=== PATIENT | female | born 1935 | race Caucasian/White ===

== ENCOUNTER 2017-04-07 14:14 | Inpatient (IN) ==
[2017-04-07] MEDS ORDERED: ACETAMINOPHEN 325 MG TABLET PO PRN (19:34)
[2017-04-07] MEDS ORDERED: ALUMINUM/MAGNES/SIMETH MAX STR 30 ML UDCUP PO PRN (19:34)
[2017-04-07] MEDS ORDERED: MECLIZINE 25 MG TABLET PO PRN (19:40)
[2017-04-07] MEDS: DEXTROSE 5% NACL 0.45% 1,000 ML IV SCH (20:44)
[2017-04-07] MEDS: PIPERACILLIN/TAZOBACTAM 3,375 MG in SODIUM CHLORIDE 0.9% 100 ML IV SCH (20:46)
[2017-04-07] MEDS: ZALEPLON 5 MG CAPSULE PO SCH (20:50)
[2017-04-07] MEDS: rOPINIRole 1 MG TABLET PO SCH (20:50)
[2017-04-07] MEDS: traZODone 50 MG TABLET PO SCH (20:50)
[2017-04-07] MEDS: DOCUSATE SODIUM 100 MG CAPSULE PO SCH (20:51)
[2017-04-07] MEDS: ONDANSETRON 4 MG TABLET PO PRN (20:51)
[2017-04-07] MEDS: PREGABALIN 50 MG CAPSULE PO SCH (20:51)
[2017-04-07] MEDS ORDERED: AMITRIPTYLINE 75 MG TABLET PO SCH (21:00)
[2017-04-07] MEDS ORDERED: PARoxetine 10 MG TABLET PO SCH (21:00)
[2017-04-08] MEDS: PIPERACILLIN/TAZOBACTAM 3,375 MG in SODIUM CHLORIDE 0.9% 100 ML IV SCH ×3 (04:08→20:42)
[2017-04-08] MEDS ORDERED: LEVOTHYROXINE 150 MCG TABLET PO SCH (06:30)
[2017-04-08 06:50] LABS: Basophils % 0.4 % (0.0-0.8); Eosinophils # 0.1 10*3/uL (0.0-0.87); Eosinophils % 1.1 % (0.00-10.9); Hematocrit 33.8 VOL% (35.7-47.0); Hemoglobin 11.2 GM/DL (12.0-16.0); Immature Granulocytes % 0.3 %; Immature Granulocytes Absolute 0.02 #; Lymphocytes # 1.8 10*3/uL (1.4-4.0); Mean Corpuscular HGB Conc 33.1 GM/DL (32-36); Mean Corpuscular Hemoglobin 31 PG (27-34); Mean Corpuscular Volume 93.1 FL (87-102); Monocytes # 0.6 10*3/uL (0.11-0.8); Neutrophils # 4.6 10*3/uL (1.4-7.4); Neutrophils % 64.2 % (38.7-73.9); Platelet Count 193 T/CUMM (130-400); Red Blood Count 3.63 MC/CUMM (3.8-5.5); Red Cell Distribution Width 11.9 % (9.3-17.3); White Blood Count 7.1 T/CUMM (4-12)
[2017-04-08] MEDS ORDERED: LINACLOTIDE 145 MCG CAPSULE PO SCH (07:30)
[2017-04-08 07:34] LABS: Apearance,Urine CLEAR (Clear); Bacteria,Urine Occasional /HPF (Few); Bilirubin,Urine Negative (Negative); Blood, Urine Negative (Negative); Glucose,Urine (UA) Negative (Negative); Ketones,Urine Negative (Negative); Mucus,Urine Occasional /LPF (Occasional); Nitrite,Urine Negative (Negative); Protein,Urine Negative; RBC,Urine 2 /HPF (0-4); Squamous Epithelial Cell,Urine Occasional /HPF (0-10); Urine Color Yellow (Yellow); Urine Specific Gravity 1.015 (1.001-1.035); Urine Urobilinogen < 2.0 EU/DL (0.2-1.0); WBC,Urine 2 /HPF (0-6)
[2017-04-08 07:56] LABS: Bilirubin,Total 0.7 MG/DL (0.2-1.0); Calcium 8.6 MG/DL (8.5-10.1); Osmolality,Calculated 277.5 MOS/KG (273-304); Total Protein 6.2 G/DL (6.4-8.3)
[2017-04-08] MEDS ORDERED: ESCITALOPRAM 10 MG TABLET PO SCH (09:00)
[2017-04-08] MEDS: LACTULOSE 20 GM/30 ML UDCUP PO SCH (10:02)
[2017-04-08] MEDS: DOCUSATE SODIUM 100 MG CAPSULE PO SCH ×2 (10:02→20:40)
[2017-04-08] MEDS: ESTRADIOL 1 MG TABLET PO SCH (10:02)
[2017-04-08] MEDS: ASPIRIN EC 81 MG TABLET PO SCH (10:02)
[2017-04-08] MEDS: hydroCHLOROthiazide 25 MG TABLET PO SCH (10:03)
[2017-04-08] MEDS: GABAPENTIN 100 MG CAPSULE PO SCH (10:03)
[2017-04-08] MEDS: PANTOPRAZOLE 40 MG TABLET PO SCH (10:03)
[2017-04-08] MEDS: predniSONE 20 MG TABLET PO SCH (10:03)
[2017-04-08] MEDS: METOPROLOL SUCCINATE XL 25 MG TABLET PO SCH (10:03)
[2017-04-08] MEDS: HYDROmorphone 2 MG/1 ML VIAL IV PRN ×2 (13:19→17:17)
[2017-04-08] MEDS: SKIN HEALING OINT (AQUAPHOR) 50 GM TUBE TOP SCH (17:17)
[2017-04-08] MEDS: BACITRACIN OINT 0.9 GM PACK TOP SCH (17:17)
[2017-04-08] MEDS: DEXTROSE 5% NACL 0.45% 1,000 ML IV SCH (17:18)
[2017-04-08] MEDS: rOPINIRole 1 MG TABLET PO SCH (20:40)
[2017-04-08] MEDS: ZALEPLON 5 MG CAPSULE PO SCH (20:40)
[2017-04-08] MEDS: PREGABALIN 50 MG CAPSULE PO SCH (20:41)
[2017-04-08] MEDS: traZODone 50 MG TABLET PO SCH (20:41)
[2017-04-08] MEDS: oxyCODONE/ACETAMINOPHEN 5-325 MG TABLET PO PRN (20:41)
[2017-04-09] MEDS: PIPERACILLIN/TAZOBACTAM 3,375 MG in SODIUM CHLORIDE 0.9% 100 ML IV SCH ×3 (05:06→20:25)
[2017-04-09] MEDS: DEXTROSE 5% NACL 0.45% 1,000 ML IV SCH ×2 (06:54→12:28)
[2017-04-09] MEDS: ESTRADIOL 1 MG TABLET PO SCH (10:08)
[2017-04-09] MEDS: ASPIRIN EC 81 MG TABLET PO SCH (10:08)
[2017-04-09] MEDS: metroNIDAZOLE INJ 500 MG in PREMIX 1 EACH IV SCH ×2 (10:08→17:35)
[2017-04-09] MEDS: hydroCHLOROthiazide 25 MG TABLET PO SCH (10:09)
[2017-04-09] MEDS: METOPROLOL SUCCINATE XL 25 MG TABLET PO SCH (10:09)
[2017-04-09] MEDS: PANTOPRAZOLE 40 MG TABLET PO SCH (10:09)
[2017-04-09] MEDS: GABAPENTIN 100 MG CAPSULE PO SCH (10:09)
[2017-04-09] MEDS: SKIN HEALING OINT (AQUAPHOR) 50 GM TUBE TOP SCH (10:10)
[2017-04-09] MEDS: LACTULOSE 20 GM/30 ML UDCUP PO SCH (10:10)
[2017-04-09] MEDS: oxyCODONE/ACETAMINOPHEN 5-325 MG TABLET PO PRN ×2 (10:10→20:23)
[2017-04-09] MEDS: DOCUSATE SODIUM 100 MG CAPSULE PO SCH ×2 (10:10→20:23)
[2017-04-09] MEDS: BACITRACIN OINT 0.9 GM PACK TOP SCH (10:10)
[2017-04-09] MEDS: predniSONE 20 MG TABLET PO SCH (10:10)
[2017-04-09] MEDS: ONDANSETRON 4 MG TABLET PO PRN (10:11)
[2017-04-09] MEDS: HYDROmorphone 2 MG/1 ML VIAL IV PRN (14:13)
[2017-04-09] MEDS ORDERED: BISACODYL 5 MG TABLET PO ONE (15:06)
[2017-04-09] MEDS: ZALEPLON 5 MG CAPSULE PO SCH (20:23)
[2017-04-09] MEDS: rOPINIRole 1 MG TABLET PO SCH (20:23)
[2017-04-09] MEDS: PREGABALIN 50 MG CAPSULE PO SCH (20:24)
[2017-04-09] MEDS: traZODone 50 MG TABLET PO SCH (20:24)
[2017-04-10] MEDS: metroNIDAZOLE INJ 500 MG in PREMIX 1 EACH IV SCH ×2 (01:10→07:18)
[2017-04-10] MEDS: PIPERACILLIN/TAZOBACTAM 3,375 MG in SODIUM CHLORIDE 0.9% 100 ML IV SCH ×3 (04:00→20:31)
[2017-04-10] MEDS: DEXTROSE 5% NACL 0.45% 1,000 ML IV SCH ×2 (04:00→09:46)
[2017-04-10 06:15] LABS: Basophils # 0.1 10*3/uL (0.0-0.2); Basophils % 0.8 % (0.0-0.8); Eosinophils # 0.1 10*3/uL (0.0-0.87); Eosinophils % 1.1 % (0.00-10.9); Hematocrit 31.4 VOL% (35.7-47.0); Hemoglobin 10.7 GM/DL (12.0-16.0); Immature Granulocytes % 0.3 %; Immature Granulocytes Absolute 0.02 #; Lymphocytes % 30.7 % (21.3-54.2); Mean Corpuscular HGB Conc 34.1 GM/DL (32-36); Mean Corpuscular Hemoglobin 31 PG (27-34); Mean Platelet Volume 10.5 FL (9.6-12.0); Monocytes # 0.7 10*3/uL (0.11-0.8); Monocytes % 10.9 % (1.7-12.7); Neutrophils # 3.7 10*3/uL (1.4-7.4); Neutrophils % 56.2 % (38.7-73.9); Platelet Count 181 T/CUMM (130-400); Red Blood Count 3.45 MC/CUMM (3.8-5.5); Red Cell Distribution Width 11.9 % (9.3-17.3); White Blood Count 6.5 T/CUMM (4-12)
[2017-04-10 06:37] LABS: Calcium 8.8 MG/DL (8.5-10.1); Potassium 3.3 MMOL/L (3.5-5.1)
[2017-04-10] MEDS: oxyCODONE/ACETAMINOPHEN 5-325 MG TABLET PO PRN ×2 (09:42→16:06)
[2017-04-10] MEDS: ESTRADIOL 1 MG TABLET PO SCH (09:43)
[2017-04-10] MEDS: DOCUSATE SODIUM 100 MG CAPSULE PO SCH ×2 (09:43→20:25)
[2017-04-10] MEDS: hydroCHLOROthiazide 25 MG TABLET PO SCH (09:43)
[2017-04-10] MEDS: METOPROLOL SUCCINATE XL 25 MG TABLET PO SCH (09:43)
[2017-04-10] MEDS: predniSONE 10 MG TABLET PO SCH (09:43)
[2017-04-10] MEDS: GABAPENTIN 100 MG CAPSULE PO SCH (09:43)
[2017-04-10] MEDS: ASPIRIN EC 81 MG TABLET PO SCH (09:43)
[2017-04-10] MEDS: PANTOPRAZOLE 40 MG TABLET PO SCH (09:43)
[2017-04-10] MEDS: SKIN HEALING OINT (AQUAPHOR) 50 GM TUBE TOP SCH (09:44)
[2017-04-10] MEDS: POTASSIUM CHLORIDE 8 MEQ CAPSULE PO SCH ×2 (11:43→20:25)
[2017-04-10] MEDS: HYDROmorphone 2 MG/1 ML VIAL IV PRN ×2 (11:49→18:54)
[2017-04-10] MEDS: ONDANSETRON 4 MG/2 ML VIAL IV PRN ×2 (11:54→18:54)
[2017-04-10] MEDS: BACITRACIN OINT 0.9 GM PACK TOP SCH (11:55)
[2017-04-10] MEDS: rOPINIRole 1 MG TABLET PO SCH (20:25)
[2017-04-10] MEDS: traZODone 50 MG TABLET PO SCH (20:25)
[2017-04-10] MEDS: PREGABALIN 50 MG CAPSULE PO SCH (20:25)
[2017-04-10] MEDS: ZALEPLON 5 MG CAPSULE PO SCH (20:25)
[2017-04-11] MEDS: oxyCODONE/ACETAMINOPHEN 5-325 MG TABLET PO PRN ×4 (01:01→21:20)
[2017-04-11] MEDS: PIPERACILLIN/TAZOBACTAM 3,375 MG in SODIUM CHLORIDE 0.9% 100 ML IV SCH ×3 (04:13→21:17)
[2017-04-11 05:59] LABS: Basophils % 0.7 % (0.0-0.8); Eosinophils # 0.1 10*3/uL (0.0-0.87); Eosinophils % 1.4 % (0.00-10.9); Hematocrit 32.3 VOL% (35.7-47.0); Hemoglobin 11.2 GM/DL (12.0-16.0); Immature Granulocytes % 0.5 %; Immature Granulocytes Absolute 0.03 #; Lymphocytes # 2.3 10*3/uL (1.4-4.0); Lymphocytes % 39.9 % (21.3-54.2); Mean Corpuscular HGB Conc 34.7 GM/DL (32-36); Mean Corpuscular Hemoglobin 31 PG (27-34); Mean Corpuscular Volume 88.7 FL (87-102); Mean Platelet Volume 10.4 FL (9.6-12.0); Monocytes # 0.6 10*3/uL (0.11-0.8); Monocytes % 9.7 % (1.7-12.7); Neutrophils # 2.7 10*3/uL (1.4-7.4); Neutrophils % 47.8 % (38.7-73.9); Platelet Count 196 T/CUMM (130-400); Red Blood Count 3.64 MC/CUMM (3.8-5.5); White Blood Count 5.7 T/CUMM (4-12)
[2017-04-11 06:25] LABS: Calcium 8.9 MG/DL (8.5-10.1); Osmolality,Calculated 281.1 MOS/KG (273-304); Potassium 3.6 MMOL/L (3.5-5.1)
[2017-04-11] MEDS: DEXTROSE 5% NACL 0.45% 1,000 ML IV SCH ×2 (07:04→21:16)
[2017-04-11] MEDS: BACITRACIN OINT 0.9 GM PACK TOP SCH (08:52)
[2017-04-11] MEDS: SKIN HEALING OINT (AQUAPHOR) 50 GM TUBE TOP SCH (08:52)
[2017-04-11] MEDS: POTASSIUM CHLORIDE 8 MEQ CAPSULE PO SCH ×2 (08:52→21:19)
[2017-04-11] MEDS: hydroCHLOROthiazide 25 MG TABLET PO SCH (08:52)
[2017-04-11] MEDS: GABAPENTIN 100 MG CAPSULE PO SCH (08:53)
[2017-04-11] MEDS: PANTOPRAZOLE 40 MG TABLET PO SCH (08:53)
[2017-04-11] MEDS: DOCUSATE SODIUM 100 MG CAPSULE PO SCH ×2 (08:53→21:20)
[2017-04-11] MEDS: ASPIRIN EC 81 MG TABLET PO SCH (08:53)
[2017-04-11] MEDS: ESTRADIOL 1 MG TABLET PO SCH (08:53)
[2017-04-11] MEDS: predniSONE 10 MG TABLET PO SCH (08:53)
[2017-04-11] MEDS: METOPROLOL SUCCINATE XL 25 MG TABLET PO SCH (08:53)
[2017-04-11] MEDS: ZALEPLON 5 MG CAPSULE PO SCH (21:19)
[2017-04-11] MEDS: traZODone 50 MG TABLET PO SCH (21:19)
[2017-04-11] MEDS: rOPINIRole 1 MG TABLET PO SCH (21:19)
[2017-04-11] MEDS: PREGABALIN 50 MG CAPSULE PO SCH (21:20)
[2017-04-11] MEDS: ONDANSETRON 4 MG TABLET PO PRN (21:20)
[2017-04-12] MEDS: DEXTROSE 5% NACL 0.45% 1,000 ML IV SCH ×2 (00:30→21:44)
[2017-04-12] MEDS: HYDROmorphone 2 MG/1 ML VIAL IV PRN ×2 (00:47→11:43)
[2017-04-12] MEDS: PIPERACILLIN/TAZOBACTAM 3,375 MG in SODIUM CHLORIDE 0.9% 100 ML IV SCH ×3 (04:44→21:44)
[2017-04-12] MEDS: ESTRADIOL 1 MG TABLET PO SCH (09:00)
[2017-04-12] MEDS: POTASSIUM CHLORIDE 8 MEQ CAPSULE PO SCH ×2 (09:00→21:44)
[2017-04-12] MEDS: METOPROLOL SUCCINATE XL 25 MG TABLET PO SCH (09:00)
[2017-04-12] MEDS: PANTOPRAZOLE 40 MG TABLET PO SCH (09:00)
[2017-04-12] MEDS: predniSONE 10 MG TABLET PO SCH (09:00)
[2017-04-12] MEDS: ASPIRIN EC 81 MG TABLET PO SCH (09:00)
[2017-04-12] MEDS: hydroCHLOROthiazide 25 MG TABLET PO SCH (09:00)
[2017-04-12] MEDS: GABAPENTIN 100 MG CAPSULE PO SCH (09:00)
[2017-04-12] MEDS: DOCUSATE SODIUM 100 MG CAPSULE PO SCH ×2 (09:00→21:45)
[2017-04-12] MEDS: ONDANSETRON 4 MG/2 ML VIAL IV PRN ×2 (11:44→21:45)
[2017-04-12] MEDS ORDERED: LIDOCAINE 2% 5 ML VIAL ONE (13:05)
[2017-04-12] MEDS ORDERED: PROPOFOL 200 MG/20 ML VIAL IV ONE (13:05)
[2017-04-12] MEDS ORDERED: ONDANSETRON 4 MG/2 ML VIAL ONE (13:05)
[2017-04-12] MEDS: SKIN HEALING OINT (AQUAPHOR) 50 GM TUBE TOP SCH (17:45)
[2017-04-12] MEDS: BACITRACIN OINT 0.9 GM PACK TOP SCH (17:45)
[2017-04-12] MEDS: rOPINIRole 1 MG TABLET PO SCH (21:44)
[2017-04-12] MEDS: PREGABALIN 50 MG CAPSULE PO SCH (21:44)
[2017-04-12] MEDS: ZALEPLON 5 MG CAPSULE PO SCH (21:45)
[2017-04-12] MEDS: traZODone 50 MG TABLET PO SCH (21:45)
[2017-04-13] MEDS: DEXTROSE 5% NACL 0.45% 1,000 ML IV SCH ×3 (02:05→18:33)
[2017-04-13] MEDS: PIPERACILLIN/TAZOBACTAM 3,375 MG in SODIUM CHLORIDE 0.9% 100 ML IV SCH ×3 (04:11→20:47)
[2017-04-13] MEDS ORDERED: ceFAZolin 1,000 MG in SYRINGE 1 EACH IV ONE (08:09)
[2017-04-13] MEDS: hydroCHLOROthiazide 25 MG TABLET PO SCH (08:12)
[2017-04-13] MEDS: predniSONE 10 MG TABLET PO SCH (08:12)
[2017-04-13] MEDS: POTASSIUM CHLORIDE 8 MEQ CAPSULE PO SCH ×2 (08:12→20:47)
[2017-04-13] MEDS: PANTOPRAZOLE 40 MG TABLET PO SCH (08:13)
[2017-04-13] MEDS: ESTRADIOL 1 MG TABLET PO SCH (08:13)
[2017-04-13] MEDS: ASPIRIN EC 81 MG TABLET PO SCH ×2 (08:13→08:15)
[2017-04-13] MEDS: METOPROLOL SUCCINATE XL 25 MG TABLET PO SCH (08:13)
[2017-04-13] MEDS: BACITRACIN OINT 0.9 GM PACK TOP SCH (08:13)
[2017-04-13] MEDS: SKIN HEALING OINT (AQUAPHOR) 50 GM TUBE TOP SCH (08:13)
[2017-04-13] MEDS: DOCUSATE SODIUM 100 MG CAPSULE PO SCH ×2 (08:13→20:47)
[2017-04-13] MEDS: GABAPENTIN 100 MG CAPSULE PO SCH (08:13)
[2017-04-13] MEDS: oxyCODONE/ACETAMINOPHEN 5-325 MG TABLET PO PRN ×2 (08:36→16:02)
[2017-04-13 09:18] LABS: Basophils % 0.7 % (0.0-0.8); Eosinophils % 0.7 % (0.00-10.9); Hematocrit 32.2 VOL% (35.7-47.0); Hemoglobin 11.5 GM/DL (12.0-16.0); Immature Granulocytes % 0.3 %; Immature Granulocytes Absolute 0.02 #; Lymphocytes # 1.5 10*3/uL (1.4-4.0); Lymphocytes % 26.4 % (21.3-54.2); Mean Corpuscular HGB Conc 35.7 GM/DL (32-36); Mean Corpuscular Hemoglobin 31 PG (27-34); Mean Corpuscular Volume 86.8 FL (87-102); Mean Platelet Volume 10.2 FL (9.6-12.0); Monocytes # 0.5 10*3/uL (0.11-0.8); Neutrophils # 3.7 10*3/uL (1.4-7.4); Neutrophils % 63.9 % (38.7-73.9); Platelet Count 204 T/CUMM (130-400); Red Blood Count 3.71 MC/CUMM (3.8-5.5); White Blood Count 5.7 T/CUMM (4-12)
[2017-04-13 09:43] LABS: Calcium 8.7 MG/DL (8.5-10.1); Osmolality,Calculated 276.5 MOS/KG (273-304); Potassium 3.7 MMOL/L (3.5-5.1)
[2017-04-13] MEDS: MAGNESIUM CHLORIDE 64 MG TABLET PO SCH ×2 (11:00→20:47)
[2017-04-13] MEDS: HYDROmorphone 2 MG/1 ML VIAL IV PRN ×2 (11:05→20:48)
[2017-04-13] MEDS: rOPINIRole 1 MG TABLET PO SCH (20:46)
[2017-04-13] MEDS: PREGABALIN 50 MG CAPSULE PO SCH (20:47)
[2017-04-13] MEDS: ZALEPLON 5 MG CAPSULE PO SCH (20:47)
[2017-04-13] MEDS: traZODone 50 MG TABLET PO SCH (20:47)
[2017-04-14] MEDS: PIPERACILLIN/TAZOBACTAM 3,375 MG in SODIUM CHLORIDE 0.9% 100 ML IV SCH ×3 (05:01→23:32)
[2017-04-14] MEDS: DEXTROSE 5% NACL 0.45% 1,000 ML IV SCH ×2 (05:40→15:38)
[2017-04-14] MEDS ORDERED: ceFAZolin 1,000 MG in SYRINGE 1 EACH IV ONE (06:00)
[2017-04-14] MEDS: HYDROmorphone 2 MG/1 ML VIAL IV PRN ×4 (06:05→17:56)
[2017-04-14] MEDS: hydroCHLOROthiazide 25 MG TABLET PO SCH ×2 (06:09→08:06)
[2017-04-14] MEDS: METOPROLOL SUCCINATE XL 25 MG TABLET PO SCH ×2 (06:09→08:07)
[2017-04-14] MEDS: PANTOPRAZOLE 40 MG TABLET PO SCH ×2 (06:09→10:06)
[2017-04-14] MEDS ORDERED: BUPIVACAINE 0.25% 50 ML VIAL ONE (06:21)
[2017-04-14] MEDS ORDERED: ROPIVACAINE 0.5% 30 ML VIAL ONE (06:42)
[2017-04-14] MEDS ORDERED: BACITRACIN OINT 0.9 GM PACK TOP ONE (07:43)
[2017-04-14] MEDS: SKIN HEALING OINT (AQUAPHOR) 50 GM TUBE TOP SCH (08:06)
[2017-04-14] MEDS: BACITRACIN OINT 0.9 GM PACK TOP SCH (08:06)
[2017-04-14] MEDS ORDERED: ONDANSETRON 4 MG/2 ML VIAL IV PRN (08:26)
[2017-04-14] MEDS ORDERED: fentaNYL 100 MCG/2 ML VIAL ONE (08:49)
[2017-04-14] MEDS ORDERED: MIDAZOLAM 2 MG/2 ML VIAL ONE (08:49)
[2017-04-14] MEDS ORDERED: ONDANSETRON 4 MG/2 ML VIAL ONE (08:50)
[2017-04-14] MEDS ORDERED: GLYCOPYRROLATE 0.4 MG/2 ML VIAL ONE (08:50)
[2017-04-14] MEDS ORDERED: KETAMINE 500 MG/10 ML VIAL ONE (08:50)
[2017-04-14] MEDS: ASPIRIN EC 81 MG TABLET PO SCH (09:27)
[2017-04-14] MEDS: GABAPENTIN 100 MG CAPSULE PO SCH (10:05)
[2017-04-14] MEDS: DOCUSATE SODIUM 100 MG CAPSULE PO SCH ×2 (10:06→22:59)
[2017-04-14] MEDS: MAGNESIUM CHLORIDE 64 MG TABLET PO SCH ×2 (10:06→22:59)
[2017-04-14] MEDS: ESTRADIOL 1 MG TABLET PO SCH (10:06)
[2017-04-14] MEDS: predniSONE 10 MG TABLET PO SCH (10:06)
[2017-04-14] MEDS: POTASSIUM CHLORIDE 8 MEQ CAPSULE PO SCH ×2 (10:06→22:59)
[2017-04-14] MEDS: oxyCODONE/ACETAMINOPHEN 5-325 MG TABLET PO PRN ×2 (13:07→22:59)
[2017-04-14] MEDS: ceFAZolin 2,000 MG in PREMIX 1 EACH IV SCH ×2 (15:22→22:58)
[2017-04-14] MEDS: rOPINIRole 1 MG TABLET PO SCH (22:58)
[2017-04-14] MEDS: PREGABALIN 50 MG CAPSULE PO SCH (22:59)
[2017-04-14] MEDS: ZALEPLON 5 MG CAPSULE PO SCH (22:59)
[2017-04-14] MEDS: traZODone 50 MG TABLET PO SCH (22:59)
[2017-04-15] MEDS: HYDROmorphone 2 MG/1 ML VIAL IV PRN ×2 (00:38→05:19)
[2017-04-15] MEDS: DEXTROSE 5% NACL 0.45% 1,000 ML IV SCH (04:42)
[2017-04-15] MEDS: PIPERACILLIN/TAZOBACTAM 3,375 MG in SODIUM CHLORIDE 0.9% 100 ML IV SCH ×2 (05:04→14:29)
[2017-04-15] MEDS ORDERED: ENOXAPARIN 30 MG/0.3 ML SYRINGE SUBCUT SCH (06:00)
[2017-04-15 07:01] LABS: Basophils # 0.1 10*3/uL (0.0-0.2); Basophils % 0.7 % (0.0-0.8); Eosinophils # 0.1 10*3/uL (0.0-0.87); Eosinophils % 1.1 % (0.00-10.9); Hematocrit 32.5 VOL% (35.7-47.0); Hemoglobin 11.2 GM/DL (12.0-16.0); Immature Granulocytes % 0.4 %; Immature Granulocytes Absolute 0.03 #; Lymphocytes # 2.8 10*3/uL (1.4-4.0); Lymphocytes % 38.3 % (21.3-54.2); Mean Corpuscular HGB Conc 34.5 GM/DL (32-36); Mean Corpuscular Hemoglobin 31 PG (27-34); Mean Corpuscular Volume 89.5 FL (87-102); Mean Platelet Volume 10.5 FL (9.6-12.0); Monocytes # 0.6 10*3/uL (0.11-0.8); Neutrophils # 3.7 10*3/uL (1.4-7.4); Neutrophils % 51.5 % (38.7-73.9); Platelet Count 197 T/CUMM (130-400); Red Blood Count 3.63 MC/CUMM (3.8-5.5); Red Cell Distribution Width 12.2 % (9.3-17.3); White Blood Count 7.3 T/CUMM (4-12)
[2017-04-15 07:38] LABS: Calcium 8.3 MG/DL (8.5-10.1); Osmolality,Calculated 278.3 MOS/KG (273-304); Potassium 3.8 MMOL/L (3.5-5.1)
[2017-04-15] MEDS: hydroCHLOROthiazide 25 MG TABLET PO SCH (09:08)
[2017-04-15] MEDS: DOCUSATE SODIUM 100 MG CAPSULE PO SCH (09:08)
[2017-04-15] MEDS: METOPROLOL SUCCINATE XL 25 MG TABLET PO SCH (09:08)
[2017-04-15] MEDS: SKIN HEALING OINT (AQUAPHOR) 50 GM TUBE TOP SCH (09:08)
[2017-04-15] MEDS: POTASSIUM CHLORIDE 8 MEQ CAPSULE PO SCH (09:08)
[2017-04-15] MEDS: MAGNESIUM CHLORIDE 64 MG TABLET PO SCH (09:08)
[2017-04-15] MEDS: PANTOPRAZOLE 40 MG TABLET PO SCH (09:08)
[2017-04-15] MEDS: GABAPENTIN 100 MG CAPSULE PO SCH (09:08)
[2017-04-15] MEDS: ASPIRIN EC 81 MG TABLET PO SCH (09:08)
[2017-04-15] MEDS: ESTRADIOL 1 MG TABLET PO SCH (09:08)
[2017-04-15] MEDS: predniSONE 10 MG TABLET PO SCH (09:08)
[2017-04-15] MEDS: BACITRACIN OINT 0.9 GM PACK TOP SCH (09:08)
[2017-04-15] MEDS ORDERED: HYDROmorphone 2 MG/1 ML VIAL IV PRN (10:31)
[2017-04-15 12:12] VITALS: BP 156/74
== END 2017-04-15 14:32 | disposition home health service (06) | DRG 580 ==
LOC: N.5E 18:39
PROVIDERS: ADMIT Specialist; ATTEND Specialist

== ENCOUNTER 2017-05-25 12:06 | Inpatient (IN) ==
[2017-05-25] MEDS ORDERED: ONDANSETRON 4 MG/2 ML VIAL IV PRN (12:16)
[2017-05-25] MEDS: SODIUM CHLORIDE 0.9% 1,000 ML IV SCH ×3 (13:31→23:09)
[2017-05-25 14:34] LABS: Basophils % 0.4 % (0.0-0.8); Eosinophils % 0.1 % (0.00-10.9); Hematocrit 39.7 VOL% (35.7-47.0); Hemoglobin 14.3 GM/DL (12.0-16.0); Immature Granulocytes % 0.4 %; Immature Granulocytes Absolute 0.03 #; Lymphocytes # 1.7 10*3/uL (1.4-4.0); Lymphocytes % 19.9 % (21.3-54.2); Mean Corpuscular Hemoglobin 32 PG (27-34); Mean Corpuscular Volume 87.6 FL (87-102); Mean Platelet Volume 9.8 FL (9.6-12.0); Monocytes # 0.3 10*3/uL (0.11-0.8); Neutrophils # 6.3 10*3/uL (1.4-7.4); Neutrophils % 76.2 % (38.7-73.9); Platelet Count 184 T/CUMM (130-400); Red Blood Count 4.53 MC/CUMM (3.8-5.5); Red Cell Distribution Width 12.5 % (9.3-17.3); White Blood Count 8.3 T/CUMM (4-12)
[2017-05-25] MEDS: traMADol 50 MG TABLET PO PRN ×2 (14:54→21:14)
[2017-05-25 14:55] LABS: Bilirubin,Total 0.6 MG/DL (0.2-1.0); Osmolality,Calculated 282.3 MOS/KG (273-304); Potassium 3.6 MMOL/L (3.5-5.1); Total Protein 7.7 G/DL (6.4-8.3)
[2017-05-25 15:01] LABS: Troponin I Only < 0.015 NG/ML (0.00-0.045)
[2017-05-25 15:02] LABS: Free T4 (Free Thyroxine) 0.74 NG/DL (0.76-1.46); Thyroid Stimulating Hormone 0.383 uIU/ml (0.358-3.74)
[2017-05-25] MEDS ORDERED: ACETAMINOPHEN 325 MG TABLET PO PRN (15:43)
[2017-05-25] MEDS ORDERED: MECLIZINE 25 MG TABLET PO PRN (15:43)
[2017-05-25] MEDS: ESTRADIOL 1 MG TABLET PO SCH (16:28)
[2017-05-25] MEDS: ESCITALOPRAM 10 MG TABLET PO SCH (16:28)
[2017-05-25] MEDS: rOPINIRole 1 MG TABLET PO SCH (21:14)
[2017-05-25] MEDS: DOCUSATE SODIUM 100 MG CAPSULE PO SCH (21:14)
[2017-05-25] MEDS: traZODone 50 MG TABLET PO PRN (23:09)
[2017-05-26 00:33] LABS: Apearance,Urine Slightly Hazy (Clear); Bacteria,Urine Many /HPF (Few); Bilirubin,Urine Negative (Negative); Blood, Urine Negative (Negative); Glucose,Urine (UA) Negative (Negative); Ketones,Urine Negative (Negative); Mucus,Urine Many /LPF (Occasional); Nitrite,Urine Positive (Negative); Protein,Urine Negative; RBC,Urine 2 /HPF (0-4); Squamous Epithelial Cell,Urine Occasional /HPF (0-10); Urine Color Yellow (Yellow); Urine Specific Gravity 1.024 (1.001-1.035); Urine Urobilinogen < 2.0 EU/DL (0.2-1.0); WBC,Urine 23 /HPF (0-6)
[2017-05-26] MEDS: ACETAMINOPHEN 325 MG TABLET PO PRN ×2 (02:05→21:05)
[2017-05-26] MEDS: traMADol 50 MG TABLET PO PRN ×3 (04:54→18:03)
[2017-05-26 06:45] LABS: Basophils # 0.1 10*3/uL (0.0-0.2); Basophils % 0.6 % (0.0-0.8); Eosinophils % 0.4 % (0.00-10.9); Hematocrit 37.5 VOL% (35.7-47.0); Hemoglobin 13.3 GM/DL (12.0-16.0); Immature Granulocytes % 0.5 %; Immature Granulocytes Absolute 0.04 #; Lymphocytes # 2.1 10*3/uL (1.4-4.0); Lymphocytes % 26.2 % (21.3-54.2); Mean Corpuscular HGB Conc 35.5 GM/DL (32-36); Mean Corpuscular Hemoglobin 31 PG (27-34); Mean Corpuscular Volume 87.6 FL (87-102); Mean Platelet Volume 10.2 FL (9.6-12.0); Monocytes # 0.5 10*3/uL (0.11-0.8); Monocytes % 6.1 % (1.7-12.7); Neutrophils # 5.3 10*3/uL (1.4-7.4); Neutrophils % 66.2 % (38.7-73.9); Platelet Count 178 T/CUMM (130-400); Red Blood Count 4.28 MC/CUMM (3.8-5.5); Red Cell Distribution Width 12.6 % (9.3-17.3)
[2017-05-26] MEDS: SODIUM CHLORIDE 0.9% 1,000 ML IV SCH ×3 (07:08→21:08)
[2017-05-26 07:34] LABS: Blood Urea Nitrogen 14 MG/DL (7-18); Calcium 8.7 MG/DL (8.5-10.1); Glucose 96 MG/DL (74-106); Osmolality,Calculated 283.1 MOS/KG (273-304); Potassium 3.2 MMOL/L (3.5-5.1); Sodium 142 MMOL/L (136-145); Troponin I Only < 0.015 NG/ML (0.00-0.045)
[2017-05-26] MEDS ORDERED: PANTOPRAZOLE 40 MG TABLET PO SCH (09:00)
[2017-05-26] MEDS ORDERED: METOPROLOL SUCCINATE XL 25 MG TABLET PO SCH ×2 (09:00)
[2017-05-26] MEDS: DOCUSATE SODIUM 100 MG CAPSULE PO SCH ×2 (09:12→21:04)
[2017-05-26] MEDS: PANTOPRAZOLE 40 MG TABLET PO SCH (09:12)
[2017-05-26] MEDS: ESTRADIOL 1 MG TABLET PO SCH (09:12)
[2017-05-26] MEDS: ESCITALOPRAM 10 MG TABLET PO SCH (09:12)
[2017-05-26] MEDS: MEGESTROL 40 MG TABLET PO SCH ×2 (09:12→21:04)
[2017-05-26] MEDS: ASPIRIN EC 81 MG TABLET PO SCH (09:12)
[2017-05-26] MEDS: POTASSIUM CHLORIDE 8 MEQ CAPSULE PO SCH ×2 (09:12→21:05)
[2017-05-26] MEDS: hydroCHLOROthiazide 25 MG TABLET PO SCH (09:12)
[2017-05-26] MEDS: LOSARTAN 25 MG TABLET PO SCH ×2 (09:20→21:04)
[2017-05-26] MEDS ORDERED: NITROGLYCERIN SL 0.4 MG TABLET SL PRN (09:32)
[2017-05-26 10:44] LABS: Troponin I Only < 0.015 NG/ML (0.00-0.045)
[2017-05-26] MEDS: rOPINIRole 1 MG TABLET PO SCH (21:04)
[2017-05-26] MEDS: traZODone 50 MG TABLET PO PRN (21:12)
[2017-05-27 05:52] LABS: Basophils # 0.1 10*3/uL (0.0-0.2); Basophils % 0.6 % (0.0-0.8); Eosinophils # 0.1 10*3/uL (0.0-0.87); Eosinophils % 0.7 % (0.00-10.9); Hematocrit 35.8 VOL% (35.7-47.0); Hemoglobin 12.8 GM/DL (12.0-16.0); Immature Granulocytes % 0.3 %; Immature Granulocytes Absolute 0.03 #; Lymphocytes # 2.5 10*3/uL (1.4-4.0); Lymphocytes % 28.3 % (21.3-54.2); Mean Corpuscular HGB Conc 35.8 GM/DL (32-36); Mean Corpuscular Hemoglobin 31 PG (27-34); Mean Corpuscular Volume 87.3 FL (87-102); Mean Platelet Volume 9.8 FL (9.6-12.0); Monocytes # 0.5 10*3/uL (0.11-0.8); Monocytes % 5.3 % (1.7-12.7); Neutrophils # 5.7 10*3/uL (1.4-7.4); Neutrophils % 64.8 % (38.7-73.9); Platelet Count 165 T/CUMM (130-400); Red Cell Distribution Width 12.6 % (9.3-17.3); White Blood Count 8.8 T/CUMM (4-12)
[2017-05-27 06:23] LABS: Osmolality,Calculated 279.3 MOS/KG (273-304); Potassium 3.1 MMOL/L (3.5-5.1)
[2017-05-27 06:25] LABS: Risk Ratio 3.49
[2017-05-27] MEDS: traMADol 50 MG TABLET PO PRN (06:50)
[2017-05-27] MEDS: SODIUM CHLORIDE 0.9% 1,000 ML IV SCH (06:54)
[2017-05-27] MEDS ORDERED: POTASSIUM CHLORIDE 20 MEQ TABLET PO ONE (08:48)
[2017-05-27] MEDS: PANTOPRAZOLE 40 MG TABLET PO SCH (09:39)
[2017-05-27] MEDS: ASPIRIN EC 81 MG TABLET PO SCH (09:39)
[2017-05-27] MEDS: POTASSIUM CHLORIDE 8 MEQ CAPSULE PO SCH (09:40)
[2017-05-27] MEDS: MEGESTROL 40 MG TABLET PO SCH (09:40)
[2017-05-27] MEDS: LOSARTAN 25 MG TABLET PO SCH (09:40)
[2017-05-27] MEDS: hydroCHLOROthiazide 25 MG TABLET PO SCH (09:40)
[2017-05-27] MEDS: DOCUSATE SODIUM 100 MG CAPSULE PO SCH (09:40)
[2017-05-27] MEDS: ESTRADIOL 1 MG TABLET PO SCH (09:40)
[2017-05-27] MEDS: ESCITALOPRAM 10 MG TABLET PO SCH (09:40)
[2017-05-27 11:10] VITALS: BP 159/69
== END 2017-05-27 11:41 | disposition home health service (06) | DRG 641 ==
LOC: N.5E 12:39
PROVIDERS: ADMIT Internal Medicine; ATTEND Internal Medicine

== ENCOUNTER 2019-03-10 09:13 | Inpatient (IN) ==
[2019-03-10] MEDS ORDERED: ASPIRIN 325 MG TABLET PO STA (09:30)
[2019-03-10] MEDS ORDERED: DICYCLOMINE 20 MG/2 ML AMP IM ONE (10:04)
[2019-03-10] MEDS ORDERED: ONDANSETRON 4 MG/2 ML VIAL IV STA (10:04)
[2019-03-10] MEDS ORDERED: METOCLOPRAMIDE 10 MG/2 ML VIAL IV STA (10:04)
[2019-03-10 11:19] LABS: Basophils # 0.1 10*3/uL (0.0-0.2); Basophils % 0.5 % (0.0-0.8); Eosinophils # 0.1 10*3/uL (0.0-0.87); Eosinophils % 0.6 % (0.00-10.9); Hematocrit 33.2 VOL% (35.7-47.0); Hemoglobin 11.2 GM/DL (12.0-16.0); Immature Granulocytes % 0.5 %; Immature Granulocytes Absolute 0.06 #; Lymphocytes # 2.2 10*3/uL (1.4-4.0); Lymphocytes % 17.1 % (21.3-54.2); Mean Corpuscular HGB Conc 33.7 GM/DL (32-36); Mean Corpuscular Volume 94.6 FL (87-102); Mean Platelet Volume 9.2 FL (9.6-12.0); Monocytes % 6.3 % (1.7-12.7); Platelet Count 245 T/CUMM (130-400); Red Blood Count 3.51 MC/CUMM (3.8-5.5); Red Cell Distribution Width 13.2 % (9.3-17.3)
[2019-03-10 11:29] LABS: Albumin 3.8 G/DL (3.4-5.0); Bilirubin,Total 0.8 MG/DL (0.2-1.0); Calcium 8.5 MG/DL (8.5-10.1); Osmolality,Calculated 280.3 MOS/KG (273-304); Total Protein 7.7 G/DL (6.4-8.3)
[2019-03-10 12:35] LABS: Troponin I < 0.015 NG/ML (0.00-0.045)
[2019-03-10] MEDS ORDERED: ONDANSETRON 4 MG/2 ML VIAL IV PRN (12:57)
[2019-03-10 13:50] LABS: Apearance,Urine CLOUDY (Clear); Bacteria,Urine Few /HPF (Few); Bilirubin,Urine Negative (Negative); Blood, Urine Small mg/dL (Negative); Glucose,Urine (UA) Negative (Negative); Ketones,Urine Negative (Negative); Mucus,Urine Occasional /LPF (Occasional); Nitrite,Urine Positive (Negative); Protein,Urine 30 MG/DL; RBC,Urine 8 /HPF (0-4); Squamous Epithelial Cell,Urine Few /HPF (0-10); Urine Color Amber (Yellow); Urine Specific Gravity 1.026 (1.001-1.035); Urine Urobilinogen < 2.0 EU/DL (0.2-1.0); WBC,Urine 415 /HPF (0-6)
[2019-03-10 13:52] LABS: Amylase 4116 U/L (25-115)
[2019-03-10] MEDS: DEXTROSE 5% NACL 0.45% 1,000 ML IV SCH (17:51)
[2019-03-10] MEDS: fentaNYL 100 MCG/2 ML VIAL IV PRN ×2 (17:51→21:11)
[2019-03-10] MEDS: METOCLOPRAMIDE 10 MG/2 ML VIAL IV SCH (17:52)
[2019-03-10] MEDS: ENOXAPARIN 40 MG/0.4 ML SYRINGE SUBCUT SCH (21:11)
[2019-03-11] MEDS: METOCLOPRAMIDE 10 MG/2 ML VIAL IV SCH ×4 (00:06→19:25)
[2019-03-11] MEDS: DEXTROSE 5% NACL 0.45% 1,000 ML IV SCH ×4 (02:05→19:26)
[2019-03-11 05:10] LABS: Basophils # 0.1 10*3/uL (0.0-0.2); Basophils % 0.5 % (0.0-0.8); Eosinophils # 0.1 10*3/uL (0.0-0.87); Eosinophils % 1.1 % (0.00-10.9); Hematocrit 31.2 VOL% (35.7-47.0); Hemoglobin 10.6 GM/DL (12.0-16.0); Immature Granulocytes % 0.3 %; Immature Granulocytes Absolute 0.03 #; Lymphocytes # 2.5 10*3/uL (1.4-4.0); Lymphocytes % 25.4 % (21.3-54.2); Mean Corpuscular Volume 94.3 FL (87-102); Mean Platelet Volume 9.4 FL (9.6-12.0); Neutrophils % 65.7 % (38.7-73.9); Platelet Count 218 T/CUMM (130-400); Red Blood Count 3.31 MC/CUMM (3.8-5.5); Red Cell Distribution Width 12.8 % (9.3-17.3); White Blood Count 9.7 T/CUMM (4-12)
[2019-03-11 05:42] LABS: Alanine Aminotransferase 10 U/L (13-56); Albumin 3.1 G/DL (3.4-5.0); Alkaline Phosphatase 51 U/L (45-117); Amylase > 1300 U/L (25-115); Aspartate Amino Transferase 20 U/L (0-37); Blood Urea Nitrogen 17 MG/DL (7-18); Calcium 8.3 MG/DL (8.5-10.1); Estimated Glom Filtration Rate 65 ML/MIN; Glucose 132 MG/DL (74-106); Osmolality,Calculated 276.8 MOS/KG (273-304); Total Protein 6.8 G/DL (6.4-8.3)
[2019-03-11] MEDS: PANTOPRAZOLE 40 MG VIAL IV SCH (10:17)
[2019-03-11] MEDS: fentaNYL 100 MCG/2 ML VIAL IV PRN (10:17)
[2019-03-11] MEDS: LEVOFLOXACIN INJ 500 MG in PREMIX 1 EACH IV SCH (13:59)
[2019-03-11] MEDS: ALPRAZolam 0.5 MG TABLET PO PRN (16:42)
[2019-03-11] MEDS: POTASSIUM CHLORIDE RIDER 10 MEQ in PREMIX 1 EACH IV PRN (17:20)
[2019-03-11] MEDS: ENOXAPARIN 40 MG/0.4 ML SYRINGE SUBCUT SCH (22:20)
[2019-03-12] MEDS: DEXTROSE 5% NACL 0.45% 1,000 ML IV SCH ×3 (01:05→13:41)
[2019-03-12] MEDS: METOCLOPRAMIDE 10 MG/2 ML VIAL IV SCH ×4 (01:05→17:41)
[2019-03-12 05:24] LABS: Basophils # 0.1 10*3/uL (0.0-0.2); Basophils % 0.5 % (0.0-0.8); Eosinophils # 0.2 10*3/uL (0.0-0.87); Eosinophils % 1.5 % (0.00-10.9); Hematocrit 29.9 VOL% (35.7-47.0); Hemoglobin 10.1 GM/DL (12.0-16.0); Immature Granulocytes % 0.5 %; Immature Granulocytes Absolute 0.05 #; Lymphocytes # 2.2 10*3/uL (1.4-4.0); Lymphocytes % 22.1 % (21.3-54.2); Mean Corpuscular HGB Conc 33.8 GM/DL (32-36); Mean Corpuscular Volume 93.7 FL (87-102); Mean Platelet Volume 9.2 FL (9.6-12.0); Monocytes % 6.5 % (1.7-12.7); Neutrophils % 68.9 % (38.7-73.9); Platelet Count 204 T/CUMM (130-400); Red Blood Count 3.19 MC/CUMM (3.8-5.5); Red Cell Distribution Width 12.9 % (9.3-17.3); White Blood Count 9.9 T/CUMM (4-12)
[2019-03-12 05:49] LABS: Albumin 2.9 G/DL (3.4-5.0); Bilirubin,Total 0.8 MG/DL (0.2-1.0); Calcium 8.2 MG/DL (8.5-10.1); Osmolality,Calculated 279.3 MOS/KG (273-304); Total Protein 6.8 G/DL (6.4-8.3)
[2019-03-12] MEDS ORDERED: POTASSIUM CHLORIDE RIDER 10 MEQ in PREMIX 1 EACH IV PRN (08:28)
[2019-03-12] MEDS ORDERED: ESTRADIOL 0.01% VAG CREAM 42.5 GM TUBE VAG SCH (09:00)
[2019-03-12] MEDS: PANTOPRAZOLE 40 MG VIAL IV SCH (10:00)
[2019-03-12] MEDS: POTASSIUM CHLORIDE RIDER 10 MEQ in PREMIX 1 EACH IV PRN ×3 (10:16→21:20)
[2019-03-12] MEDS: LEVOFLOXACIN INJ 500 MG in PREMIX 1 EACH IV SCH (13:40)
[2019-03-12] MEDS: ALPRAZolam 0.5 MG TABLET PO PRN (14:40)
[2019-03-12] MEDS: ENOXAPARIN 40 MG/0.4 ML SYRINGE SUBCUT SCH (21:20)
[2019-03-12] MEDS: fentaNYL 100 MCG/2 ML VIAL IV PRN (22:24)
[2019-03-13] MEDS: METOCLOPRAMIDE 10 MG/2 ML VIAL IV SCH (03:43)
[2019-03-13] MEDS: DEXTROSE 5% NACL 0.45% 1,000 ML IV SCH ×4 (04:55→21:43)
[2019-03-13 05:32] LABS: Basophils # 0.1 10*3/uL (0.0-0.2); Basophils % 0.5 % (0.0-0.8); Eosinophils # 0.1 10*3/uL (0.0-0.87); Eosinophils % 1.3 % (0.00-10.9); Hematocrit 33.4 VOL% (35.7-47.0); Immature Granulocytes % 0.3 %; Immature Granulocytes Absolute 0.03 #; Lymphocytes # 2.6 10*3/uL (1.4-4.0); Lymphocytes % 26.4 % (21.3-54.2); Mean Corpuscular HGB Conc 32.9 GM/DL (32-36); Mean Corpuscular Volume 95.2 FL (87-102); Mean Platelet Volume 9.2 FL (9.6-12.0); Neutrophils % 63.5 % (38.7-73.9); Platelet Count 210 T/CUMM (130-400); Red Blood Count 3.51 MC/CUMM (3.8-5.5); Red Cell Distribution Width 12.8 % (9.3-17.3); White Blood Count 9.8 T/CUMM (4-12)
[2019-03-13 05:56] LABS: Albumin 3.2 G/DL (3.4-5.0); Bilirubin,Total 0.8 MG/DL (0.2-1.0); Calcium 8.5 MG/DL (8.5-10.1); Osmolality,Calculated 285.7 MOS/KG (273-304); Total Protein 7.4 G/DL (6.4-8.3)
[2019-03-13] MEDS: PANTOPRAZOLE 40 MG VIAL IV SCH (08:45)
[2019-03-13] MEDS ORDERED: METOCLOPRAMIDE 10 MG/2 ML VIAL IV SCH (09:00)
[2019-03-13] MEDS: LEVOFLOXACIN INJ 500 MG in PREMIX 1 EACH IV SCH (11:21)
[2019-03-13] MEDS: ENOXAPARIN 40 MG/0.4 ML SYRINGE SUBCUT SCH (21:43)
[2019-03-13] MEDS: ALPRAZolam 0.5 MG TABLET PO PRN (21:43)
[2019-03-14 06:19] LABS: Basophils # 0.1 10*3/uL (0.0-0.2); Basophils % 0.6 % (0.0-0.8); Eosinophils # 0.1 10*3/uL (0.0-0.87); Eosinophils % 1.7 % (0.00-10.9); Hemoglobin 9.8 GM/DL (12.0-16.0); Immature Granulocytes % 0.4 %; Immature Granulocytes Absolute 0.03 #; Lymphocytes # 2.2 10*3/uL (1.4-4.0); Lymphocytes % 25.4 % (21.3-54.2); Mean Corpuscular HGB Conc 32.7 GM/DL (32-36); Mean Corpuscular Volume 95.2 FL (87-102); Mean Platelet Volume 9.7 FL (9.6-12.0); Monocytes % 9.3 % (1.7-12.7); Neutrophils % 62.6 % (38.7-73.9); Platelet Count 212 T/CUMM (130-400); Red Blood Count 3.15 MC/CUMM (3.8-5.5); Red Cell Distribution Width 13.2 % (9.3-17.3); White Blood Count 8.5 T/CUMM (4-12)
[2019-03-14 06:49] LABS: Albumin 2.6 G/DL (3.4-5.0); Bilirubin,Total 0.7 MG/DL (0.2-1.0); Calcium 8.3 MG/DL (8.5-10.1); Osmolality,Calculated 281.1 MOS/KG (273-304); Total Protein 6.5 G/DL (6.4-8.3)
[2019-03-14] MEDS: DEXTROSE 5% NACL 0.45% 1,000 ML IV SCH (08:18)
[2019-03-14 08:26] VITALS: BP 118/50
[2019-03-14] MEDS: PANTOPRAZOLE 40 MG VIAL IV SCH (09:01)
[2019-03-14] MEDS: POTASSIUM CHLORIDE RIDER 10 MEQ in PREMIX 1 EACH IV PRN (09:01)
== END 2019-03-14 10:29 | disposition home health service (06) | DRG 439 ==
LOC: N.ED 09:13 → N.EDINP 12:55 → N.5E 14:56
PROVIDERS: ADMIT Internal Medicine; ATTEND Internal Medicine

== ENCOUNTER 2020-02-21 18:24 | Inpatient (IN) ==
[2020-02-21] MEDS ORDERED: ACETAMINOPHEN 500 MG TABLET PO STA (18:52)
[2020-02-21 19:36] LABS: Basophils % 0.2 % (0.0-0.8); Hematocrit 21.6 VOL% (35.7-47.0); Hemoglobin 7.1 GM/DL (12.0-16.0); Immature Granulocytes % 0.5 %; Immature Granulocytes Absolute 0.08 #; Lymphocytes # 2.7 10*3/uL (1.4-4.0); Lymphocytes % 18.2 % (21.3-54.2); Mean Corpuscular HGB Conc 32.9 GM/DL (32-36); Mean Corpuscular Volume 92.7 FL (87-102); Mean Platelet Volume 10.2 FL (9.6-12.0); Monocytes % 8.5 % (1.7-12.7); Neutrophils % 72.6 % (38.7-73.9); Platelet Count 235 T/CUMM (130-400); Red Blood Count 2.33 MC/CUMM (3.8-5.5); Red Cell Distribution Width 13.3 % (9.3-17.3); White Blood Count 14.8 T/CUMM (4-12)
[2020-02-21 19:49] LABS: INR 1.1; PT Patient Result 11.5 SECS (9.8-11.9); Partial Thromboplastin Time 31.3 SECS (23.9-33.8)
[2020-02-21 19:54] LABS: Osmolality,Calculated 276.7 MOS/KG (273-304)
[2020-02-21 20:04] LABS: Bacteria,Urine Many /HPF (Few); Bilirubin,Urine Negative (Negative); Blood, Urine Moderate mg/dL (Negative); Glucose,Urine (UA) Negative (Negative); Ketones,Urine 5 mg/dL (Negative); Mucus,Urine Occasional /LPF (Occasional); Nitrite,Urine Positive (Negative); Protein,Urine 30 MG/DL; RBC,Urine 1 /HPF (0-4); Squamous Epithelial Cell,Urine Occasional /HPF (0-10); Urine Appearance CLEAR (Clear); Urine Color Yellow (Yellow); Urine Specific Gravity 1.016 (1.001-1.035); Urine Urobilinogen < 2.0 EU/DL (0.2-1.0); WBC,Urine 2 /HPF (0-6)
[2020-02-21] MEDS ORDERED: cefTRIAXone 1,000 MG in SODIUM CHLORIDE 0.9% 100 ML IV STA (20:27)
[2020-02-21] MEDS ORDERED: ONDANSETRON 4 MG/2 ML VIAL IV PRN (20:29)
[2020-02-21] MEDS ORDERED: SODIUM CHLORIDE 0.9% 1,000 ML IV PRN (20:31)
[2020-02-22] MEDS: LEVOTHYROXINE 25 MCG TABLET PO SCH (06:33)
[2020-02-22] MEDS ORDERED: ENOXAPARIN 40 MG/0.4 ML SYRINGE SUBCUT SCH (08:30)
[2020-02-22] MEDS ORDERED: SODIUM CHLORIDE 0.9% 1,000 ML IV PRN (08:34)
[2020-02-22] MEDS: DEXAMETHASONE 4 MG/1 ML VIAL IV SCH ×2 (09:15→20:14)
[2020-02-22] MEDS: hydroCHLOROthiazide 25 MG TABLET PO SCH (09:15)
[2020-02-22] MEDS: POTASSIUM CHLORIDE 8 MEQ CAPSULE PO SCH ×2 (09:15→20:14)
[2020-02-22] MEDS: PANTOPRAZOLE 40 MG TABLET PO SCH (09:15)
[2020-02-22] MEDS: LOSARTAN 50 MG TABLET PO SCH (09:16)
[2020-02-22] MEDS: ESTRADIOL 0.01% VAG CREAM 42.5 GM TUBE VAG SCH (09:16)
[2020-02-22 09:51] LABS: Basophils % 0.3 % (0.0-0.8); Eosinophils % 0.3 % (0.00-10.9); Hematocrit 36.4 VOL% (35.7-47.0); Hemoglobin 11.9 GM/DL (12.0-16.0); Immature Granulocytes % 0.5 %; Immature Granulocytes Absolute 0.03 #; Lymphocytes # 1.6 10*3/uL (1.4-4.0); Lymphocytes % 24.9 % (21.3-54.2); Mean Corpuscular HGB Conc 32.7 GM/DL (32-36); Mean Corpuscular Volume 87.7 FL (87-102); Mean Platelet Volume 10.1 FL (9.6-12.0); Monocytes % 7.9 % (1.7-12.7); Neutrophils % 66.1 % (38.7-73.9); Platelet Count 166 T/CUMM (130-400); Red Blood Count 4.15 MC/CUMM (3.8-5.5); Red Cell Distribution Width 16.8 % (9.3-17.3); White Blood Count 6.5 T/CUMM (4-12)
[2020-02-22] MEDS: rOPINIRole 1 MG TABLET PO PRN (20:14)
[2020-02-22] MEDS: traZODone 50 MG TABLET PO SCH (20:14)
[2020-02-23] MEDS: LEVOTHYROXINE 25 MCG TABLET PO SCH (06:21)
[2020-02-23] MEDS: hydroCHLOROthiazide 25 MG TABLET PO SCH (09:18)
[2020-02-23] MEDS: POTASSIUM CHLORIDE 8 MEQ CAPSULE PO SCH ×2 (09:18→21:03)
[2020-02-23] MEDS: PANTOPRAZOLE 40 MG TABLET PO SCH (09:18)
[2020-02-23] MEDS: DEXAMETHASONE 4 MG/1 ML VIAL IV SCH ×2 (09:18→21:03)
[2020-02-23] MEDS: LOSARTAN 50 MG TABLET PO SCH (09:19)
[2020-02-23] MEDS: cefTRIAXone 500 MG in SYRINGE 1 EACH IV SCH (16:40)
[2020-02-23] MEDS: busPIRone 5 MG TABLET PO SCH ×2 (17:51→21:03)
[2020-02-23] MEDS ORDERED: HALOPERIDOL 5 MG/ML AMP IM PRN (19:29)
[2020-02-23] MEDS: rOPINIRole 1 MG TABLET PO PRN (21:03)
[2020-02-23] MEDS: traZODone 50 MG TABLET PO SCH (21:03)
[2020-02-24] MEDS: LEVOTHYROXINE 25 MCG TABLET PO SCH (05:52)
[2020-02-24 06:30] LABS: Basophils % 0.1 % (0.0-0.8); Hematocrit 44.2 VOL% (35.7-47.0); Hemoglobin 14.2 GM/DL (12.0-16.0); Immature Granulocytes % 0.5 %; Immature Granulocytes Absolute 0.05 #; Lymphocytes # 1.4 10*3/uL (1.4-4.0); Lymphocytes % 13.5 % (21.3-54.2); Mean Corpuscular HGB Conc 32.1 GM/DL (32-36); Mean Corpuscular Volume 89.3 FL (87-102); Mean Platelet Volume 10.7 FL (9.6-12.0); Monocytes % 3.9 % (1.7-12.7); Platelet Count 227 T/CUMM (130-400); Red Blood Count 4.95 MC/CUMM (3.8-5.5); Red Cell Distribution Width 16.2 % (9.3-17.3); White Blood Count 10.1 T/CUMM (4-12)
[2020-02-24] MEDS: DEXAMETHASONE 4 MG/1 ML VIAL IV SCH ×2 (09:06→20:44)
[2020-02-24] MEDS: hydroCHLOROthiazide 25 MG TABLET PO SCH (09:06)
[2020-02-24] MEDS: POTASSIUM CHLORIDE 8 MEQ CAPSULE PO SCH ×2 (09:06→20:44)
[2020-02-24] MEDS: PANTOPRAZOLE 40 MG TABLET PO SCH (09:06)
[2020-02-24] MEDS: LOSARTAN 50 MG TABLET PO SCH (09:06)
[2020-02-24] MEDS: busPIRone 5 MG TABLET PO SCH ×2 (09:06→20:44)
[2020-02-24] MEDS: cefTRIAXone 500 MG in SYRINGE 1 EACH IV SCH (15:19)
[2020-02-24] MEDS: POLYETHYLENE GLYCOL POWDER 17 GM PACK PO SCH (16:36)
[2020-02-24] MEDS: hydrALAZINE 25 MG TABLET PO SCH ×2 (16:36→20:44)
[2020-02-24] MEDS: rOPINIRole 1 MG TABLET PO PRN (20:44)
[2020-02-24] MEDS: traZODone 50 MG TABLET PO SCH (20:46)
[2020-02-25] MEDS: LEVOTHYROXINE 25 MCG TABLET PO SCH (05:48)
[2020-02-25 06:15] LABS: Albumin 2.9 G/DL (3.4-5.0); Bilirubin,Total 0.7 MG/DL (0.2-1.0); Calcium 9.5 MG/DL (8.5-10.1); Osmolality,Calculated 282.7 MOS/KG (273-304); Total Protein 7.6 G/DL (6.4-8.3)
[2020-02-25] MEDS: DEXAMETHASONE 4 MG/1 ML VIAL IV SCH ×2 (09:58→20:00)
[2020-02-25] MEDS: busPIRone 5 MG TABLET PO SCH ×2 (09:59→20:00)
[2020-02-25] MEDS: PANTOPRAZOLE 40 MG TABLET PO SCH (09:59)
[2020-02-25] MEDS: LOSARTAN 50 MG TABLET PO SCH (09:59)
[2020-02-25] MEDS: POTASSIUM CHLORIDE 8 MEQ CAPSULE PO SCH ×2 (09:59→20:00)
[2020-02-25] MEDS: hydrALAZINE 25 MG TABLET PO SCH ×2 (09:59→20:00)
[2020-02-25] MEDS: POLYETHYLENE GLYCOL POWDER 17 GM PACK PO SCH (09:59)
[2020-02-25] MEDS: hydroCHLOROthiazide 25 MG TABLET PO SCH (09:59)
[2020-02-25] MEDS: ACETAMINOPHEN 500 MG TABLET PO PRN (15:23)
[2020-02-25] MEDS: cefTRIAXone 500 MG in SYRINGE 1 EACH IV SCH (15:23)
[2020-02-25] MEDS: ESTRADIOL 0.01% VAG CREAM 42.5 GM TUBE VAG SCH (17:50)
[2020-02-25] MEDS: traZODone 50 MG TABLET PO SCH (20:00)
[2020-02-25] MEDS: rOPINIRole 1 MG TABLET PO PRN (20:00)
[2020-02-26] MEDS: ACETAMINOPHEN 500 MG TABLET PO PRN (00:05)
[2020-02-26] MEDS: LEVOTHYROXINE 25 MCG TABLET PO SCH (05:59)
[2020-02-26 06:38] LABS: Basophils % 0.1 % (0.0-0.8); Hematocrit 44.1 VOL% (35.7-47.0); Hemoglobin 14.4 GM/DL (12.0-16.0); Immature Granulocytes Absolute 0.08 #; Lymphocytes # 1.2 10*3/uL (1.4-4.0); Mean Corpuscular HGB Conc 32.7 GM/DL (32-36); Mean Corpuscular Volume 86.8 FL (87-102); Mean Platelet Volume 10.3 FL (9.6-12.0); Monocytes % 10.5 % (1.7-12.7); Neutrophils % 74.4 % (38.7-73.9); Platelet Count 249 T/CUMM (130-400); Red Blood Count 5.08 MC/CUMM (3.8-5.5); Red Cell Distribution Width 15.7 % (9.3-17.3); White Blood Count 8.4 T/CUMM (4-12)
[2020-02-26] MEDS: POLYETHYLENE GLYCOL POWDER 17 GM PACK PO SCH (09:51)
[2020-02-26] MEDS: LOSARTAN 50 MG TABLET PO SCH (09:52)
[2020-02-26] MEDS: PANTOPRAZOLE 40 MG TABLET PO SCH (09:52)
[2020-02-26] MEDS: DEXAMETHASONE 4 MG TABLET PO SCH (09:52)
[2020-02-26] MEDS: POTASSIUM CHLORIDE 8 MEQ CAPSULE PO SCH ×2 (09:52→21:46)
[2020-02-26] MEDS: hydrALAZINE 25 MG TABLET PO SCH ×2 (09:52→21:46)
[2020-02-26] MEDS: busPIRone 5 MG TABLET PO SCH ×2 (09:52→21:46)
[2020-02-26] MEDS: hydroCHLOROthiazide 25 MG TABLET PO SCH (09:52)
[2020-02-26] MEDS: DEXAMETHASONE 4 MG/1 ML VIAL IV SCH (11:35)
[2020-02-26] MEDS: cefTRIAXone 500 MG in SYRINGE 1 EACH IV SCH (15:54)
[2020-02-26] MEDS: traZODone 50 MG TABLET PO SCH (21:46)
[2020-02-27 05:02] LABS: Basophils % 0.1 % (0.0-0.8); Eosinophils % 0.1 % (0.00-10.9); Hematocrit 44.5 VOL% (35.7-47.0); Hemoglobin 14.7 GM/DL (12.0-16.0); Immature Granulocytes Absolute 0.09 #; Lymphocytes % 21.5 % (21.3-54.2); Mean Corpuscular Volume 86.2 FL (87-102); Monocytes % 15.4 % (1.7-12.7); Neutrophils % 61.9 % (38.7-73.9); Platelet Count 230 T/CUMM (130-400); Red Blood Count 5.16 MC/CUMM (3.8-5.5); Red Cell Distribution Width 15.6 % (9.3-17.3); White Blood Count 9.4 T/CUMM (4-12)
[2020-02-27 05:20] LABS: Calcium 9.7 MG/DL (8.5-10.1)
[2020-02-27] MEDS: LEVOTHYROXINE 25 MCG TABLET PO SCH (06:05)
[2020-02-27] MEDS: hydroCHLOROthiazide 25 MG TABLET PO SCH (08:56)
[2020-02-27] MEDS: LOSARTAN 50 MG TABLET PO SCH (08:56)
[2020-02-27] MEDS: hydrALAZINE 25 MG TABLET PO SCH ×2 (08:56→21:17)
[2020-02-27] MEDS: DEXAMETHASONE 4 MG TABLET PO SCH (08:56)
[2020-02-27] MEDS: busPIRone 5 MG TABLET PO SCH ×2 (08:56→21:17)
[2020-02-27] MEDS: POLYETHYLENE GLYCOL POWDER 17 GM PACK PO SCH (08:57)
[2020-02-27] MEDS: PANTOPRAZOLE 40 MG TABLET PO SCH (08:57)
[2020-02-27] MEDS: POTASSIUM CHLORIDE 8 MEQ CAPSULE PO SCH ×2 (08:57→21:17)
[2020-02-27] MEDS: cefTRIAXone 500 MG in SYRINGE 1 EACH IV SCH (15:04)
[2020-02-27] MEDS: traZODone 50 MG TABLET PO SCH (21:17)
[2020-02-28] MEDS: LEVOTHYROXINE 25 MCG TABLET PO SCH (06:32)
[2020-02-28] MEDS: hydrALAZINE 25 MG TABLET PO SCH (08:07)
[2020-02-28] MEDS: POTASSIUM CHLORIDE 8 MEQ CAPSULE PO SCH (08:08)
[2020-02-28] MEDS: LOSARTAN 50 MG TABLET PO SCH (08:08)
[2020-02-28] MEDS: DEXAMETHASONE 4 MG TABLET PO SCH (08:08)
[2020-02-28] MEDS: PANTOPRAZOLE 40 MG TABLET PO SCH (08:08)
[2020-02-28] MEDS: hydroCHLOROthiazide 25 MG TABLET PO SCH (08:08)
[2020-02-28] MEDS: ESTRADIOL 0.01% VAG CREAM 42.5 GM TUBE VAG SCH (08:08)
[2020-02-28] MEDS: POLYETHYLENE GLYCOL POWDER 17 GM PACK PO SCH (08:08)
[2020-02-28] MEDS: busPIRone 5 MG TABLET PO SCH (08:08)
[2020-02-28 13:14] VITALS: BP 139/49
== END 2020-02-28 13:44 | disposition swing bed (61) | DRG 689 ==
LOC: N.ED 18:24 → N.EDINP 18:24 → N.2E 21:38
PROVIDERS: ADMIT Internal Medicine; ATTEND Internal Medicine